=== PATIENT | female | born 1985 | race Caucasian/White ===

== ENCOUNTER → 2020-12-06 02:17 | Outpatient (CLI) | payer OTHER, SELFPAY ==
[2020-12-06 22:46] LABS: SARS-CoV-2 RNA PCR Negative
== END ==
PROVIDERS: Visit Provider Obstetrics & Gynecology
DX: Z01.812 Encounter for preprocedural laboratory examination (principal); Z20.822 Contact with and (suspected) exposure to COVID-19
CPT/HCPCS: C9803; U0003; U0005

== ENCOUNTER 2020-12-09 00:50 | Day surgery (SDC) | payer OTHER, SELFPAY ==
[2020-12-01 15:41] VITALS: BMI 37.3
[2020-12-09] VITALS (8 sets, daily range): BP systolic 97–130; BP diastolic 45–71; PULSE 80–105; RESP 12–19; TEMP 35.9–36.2; O2SAT 95–100
--- NOTE | 2020-12-09 08:48 | P.PNAN_ITS ---
Anes - Initial Pre Proc Eval Procedure: Operation Date: 12/09/20 13:30 Proposed Procedures p Laparoscopic Bilateral Tubal Ligation With Fulguration - Ghada Tsang MD Date/Time: 12/09/20 08:48 Surgeon: Ghada Tsang MD Pre Op Diagnosis: Desires Sterilization Patient Data Age: 35 Gender: F Height: 1.6 m Weight: 95.45 kg Allergies Allergy/AdvReac Type Severity Reaction Status Date / Time No Known Allergies Allergy Verified 12/01/20 15:19 Home Medications Medication Instructions Recorded Confirmed Type clonidine HCl 0.1 mg PO TID 12/01/20 12/01/20 History sertraline 200 mg PO DAILY 12/01/20 12/01/20 History Patient hx anesthesia problems: none Family hx anesthesia problems: none [facility] Past Medical History Medical History (Updated 12/09/20 @ 08:49 by Paul Davis MD) Anxiety Depression Obesity Social History Social History Smoking status: Light tobacco smoker Tobacco type: cigarettes Additional smoking assessment comments: 1/2 ppd x 15 years Living arrangements: with family Spiritual care concerns: No Anes - Eval Final PreProcedure Day of Procedure 12/09/20 08:48 Patient weight: obese Heart: regular rate and rhythm Lungs: clear to auscultation and normal air movement Airway: Mallampati scale class II Neurological: alert and oriented Last oral intake: >/= 8 hours ASA classification: II Emergent: no Anesthetic plan: proceed Anesthesia type and monitoring: general ETT Informed Consent: The patient's anesthetic plan and its attendant risks and benefits were discussed with the patient/family/POA. Questions were solicited and answers provided to the satisfaction of the patient/family/POA.
[2020-12-09] MEDS: LACTATED RINGERS 1,000 ML 30 ML IV CONT (12:11)
[2020-12-09] MEDS: KETOROLAC 15 MG/ML VIAL (*BKC) IV PUSH (12:12)
[2020-12-09] MEDS: ACETAMINOPHEN 500 MG TABLET 1000 MG PO (12:12)
[2020-12-09 12:31] LABS: Hematocrit 39.9 % (37.0-47.0); Hemoglobin 14.1 g/dL (12.0-15.0); Mean Corpuscular HGB Conc 35.3 g/dl (32-36); Mean Corpuscular Hemoglobin 29.2 pg (26-34); Mean Corpuscular Volume 82.6 fl (80-100); Mean Platelet Volume 9.4 fl (7.4-10.4); Platelet Count Result 278 k/mm3 (150-375); Red Blood Count 4.83 M/mm3 (4.2-5.4); Red Cell Distribution Width 12.8 % (11.5-14.5); White Blood Count 8.3 K/mm3 (4.5-10.0)
--- NOTE | 2020-12-09 13:25 | WPDHPUPDATE1 ---
History and Physical Update Update Date/Time: 12/09/20 13:26 History and Physical has been reviewed, including an updated exam of the patient. There are NO changes in the patient's condition. Risks, benefits, and alternatives have been discussed and questions answered. Patient agrees to proceed with procedure.
--- NOTE | 2020-12-09 13:27 | PM.HPGS ---
History of Present Illness History of Present Illness Consent: Risks, benefits, and alternatives have been discussed and questions answered. Patient agrees to proceed with procedure. Chief complaint: Desires Sterilization Narrative: Ita Ayala is a 35 year old female here for permanent sterilization. She has had 5 pregnancies, 3 miscarriages and 2 live births. She loy like to proceed wtih permanent sterilization . Review of Systems Constitutional: Constitutional: Reports no additional constitutional complaints Eyes: Eyes: Reports no additional eye complaints ENT: Comments: no complaints Cardiovascular: Cardiovascular: Reports no additional cardiovascular complaints Respiratory: Respiratory: Reports no additional respiratory complaints Gastrointestinal: Gastrointestinal: Reports no additional gastrointestinal complaints Genitourinary: Genitourinary: Reports no additional female genitourinary complaints Musculoskeletal: Musculoskeletal: Reports no additional musculoskeletal complaints Integumentary/Breasts: Skin/Breast: Reports system reviewed and no additional complaints, except as docu Neurologic: Reports system reviewed and no additional complaints, except as documented Psychiatric: Psychiatric: Reports no additional psychiatric complaints Endocrine: Endocrine: Reports no additional endocrine complaints Hematologic/Lymphatic: Hematologic/Lymphatic: Reports no additional hematologic/lymphatic complaints [facility] Past Medical History Medical History (Updated 12/09/20 @ 13:31 by Ghada Tsang MD) Anxiety Depression Obesity Social History Social History Smoking status: Light tobacco smoker Tobacco type: cigarettes Additional smoking assessment comments: 1/2 ppd x 15 years Living arrangements: with family Spiritual care concerns: No Meds Home Medications and Allergies Home Medications Medication Instructions Recorded Confirmed Type clonidine HCl 0.1 mg PO TID 12/01/20 12/09/20 History sertraline 200 mg PO DAILY 12/01/20 12/09/20 History Allergies Allergy/AdvReac Type Severity Reaction Status Date / Time No Known Allergies Allergy Verified 12/09/20 12:30 Vital Signs Vital Signs - 24 hr 12/09/20 12:31 Temperature 36.2 C L Pulse Rate 88 Respiratory Rate 12 Blood Pressure 130/71 Pulse Oximetry 100 Exam Const: General: cooperative, healthy appearing and comfortable HENMT: Head: normal to inspection and normocephalic Ears: hearing grossly normal bilaterally and external ears normal General nose exam: Normal external nose present and Normal nares present Face and sinus: normal facial exam Eyes: General: appearance normal, both eyes and all related structures Neck: Neck: normal visual inspection Chest: Chest palpation & inspection: normal inspection of the chest Resp: Effort & Inspection: normal respiratory effort and able to speak in complete sentences Cardio: Jugular venous distension: no JVD GI: Inspection: normal to inspection Back/Spine/Pelvis: Back: no CVA tenderness Skin: General skin exam: normal color and no rashes or lesions noted Neuro: General: oriented to person, oriented to place, oriented to time and patient oriented x3 Sensory Exam: normal sensation Extrem: General: normal to inspection and full ROM Psych: Appearance: grossly normal and well kempt Mental Status: mental status grossly normal Assessment and Plan Assessment and plan (1) Depression: Code(s): F32.9 - Major depressive disorder, single episode, unspecified Status: Chronic (2) Anxiety: Code(s): F41.9 - Anxiety disorder, unspecified Status: Chronic (3) Encounter for sterilization: Code(s): Z30.2 - Encounter for sterilization Status: Acute Assessment and Plan: Here for permenaent sterilization. Risk/benefits/altneratives discussed. Plan to proceed with laparo
[2020-12-09] MEDS: BUPIVACAINE/EPINEPHRINE 0.5% 30 ML VIAL INFILTRATE (14:21)
--- NOTE | 2020-12-09 14:39 | PM.PROC ---
Procedure Note - Detailed Date of procedure: 12/09/20 Pre-op diagnosis: Desires Sterilization Post-op diagnosis: same Procedure performed: Laparoscopic bilateral tubal fulguration for sterilization Description of procedure: The patient was taken to the operating room where general anesthesia was found to be adequate. She was then prepared and draped in the dorsal lithotomy position in [facility]. Molina catheter placed. A speculum was used to visualize the cervix and a single toothed tenaculum placed on the anterior lip. A uterine manipulator was placed within the cervix and affixed to the tenaculum. The speculum removed and attention was turned to the umbilicus where 0.5% marcaine with epi was injected into the infraumbilical fold (approximately 2cc). A scalpel was used to make a small incision and a hemostat used to dissect the subcutaneous fatty tissue. A veres needle was used to insert into the peritoneum and saline drop test was positive for entry and entry pressure was 8mmHg. She was insufflated to 15mmHg on high flow. A 5mm trocar was used with optical entry and entered into the umbilical incision. Immediately, if not during insertion of the umbilical port, anesthesia had concern for bradycardia and cardiac changes. So the port was left in place but the intraabdominal pressure with CO2 was released and port left open. Pulse was in 30s. After stabilization with medication (see anesthesia notes), the pulse return to normal and we proceeded with caution. We kept the pressure maximum to 13mmHg and used slow insufflation (low flow). She tolerated this well. So we proceeded to inject the suprapubic region just superior to her c/section incision with 0.5% marcaine with epinephrine (approximately 3cc) and scalpel used to make a small incision. A 5mm port was then placed with direct visualization. The uterus was elevated and the left and right fallopian tubes were visible. Bilateral ovaries appeared normal as well. Small follicle noted on left. The fimbria were identified for identification of fallopian tube. The right fallopian tube was cauterized with Kleppenger bipolar cautery along the length of the midportion of the tube and images taken. Two layers were done. The left tube was similarly cauterized. Images were taken and the procedure was complete. Insufflation released and the ports removed. Incisions closed with 4-0 monocryl in interrupted fashion. Instruments were removed from the vagina and tenaculum sites were hemostatic with silver nitrate. Speculum then removed and the molina catheter was removed. The procedure was considered complete. Incisions were covered with sterile dressings. Sponge lap and needle counts were correct. The patient returned to recovery in stable condition. Anesthesia: GETA Surgeon: Ghada Tsang MD Estimated blood loss (mL): 10 Drains: No Packing: No Pathology: none sent Complications: Other complications (Bradycardia intraoperative at the time of insertion of umbilical port just after insufflation. Possible vasovagal reaction. Recovered.) Condition: stable Disposition: PACU Findings: Normal uterus. No adhesions. Tubes normal. Ovaries normal. Upper abdomen free of adhesions. Gall bladder visible under liver
[2020-12-09] MEDS: fentaNYL CITRATE INJ (*CRX) 100 MCG/2 ML VIAL 25 MCG IV PUSH ×6 (14:45→15:18)
[2020-12-09] MEDS: HYDROmorphone HCL INJ (*CRX) 1 MG/ML SYR 0.25 MG IV PUSH ×2 (15:27→15:32)
== END 2020-12-09 16:40 | disposition home or self-care (01) ==
PROVIDERS: Visit Provider Obstetrics & Gynecology
PROC: (CPT 58671; principal; 2020-12-09 13:30)
DX: Z30.2 Encounter for sterilization (principal); R00.1 Bradycardia, unspecified; F41.8 Other specified anxiety disorders; E66.9 Obesity, unspecified; Z68.35 Body mass index [BMI] 35.0-35.9, adult; F17.210 Nicotine dependence, cigarettes, uncomplicated
CPT/HCPCS: 58670; 36415; 85027; A9270; J0330; J1100; J1170; J1885; J2250; J2405; J2704; J3010; J7120